=== PATIENT | male | born 1950 | race Caucasian/White ===

== ENCOUNTER 2017-06-25 09:51 | Emergency (ER) | payer SELFPAY ==
--- NOTE | 2017-06-25 11:30 | RAD ---
Indication: Left hand deformity. 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 There is no evidence of fracture. Interphalangeal joints are intact. IMPRESSION: Degenerative changes trapezium first metacarpal joint.
--- NOTE | 2017-06-25 11:54 | ED ---
Upper Extremity Pain - HPI Summary HPI Summary: Patient presents with CC of left dorsum of the hand deformity. 2 months ago he had a thorn puncture the dorsum of the hand and notes to immediate swelling. Denies erythema or warmth of fever. The deformity has been present x 2 months, but now he states the hand is tightening and he is unable to clinch his fist completely. He denies other symptoms. He has had Keflex at home from a previous skin infection and began to take that 2 days ago. He has had a total of 5 doses. Denies pain. Otherwise healthy. He states he feels the thorn is still in the hand and is requesting the area to be drained or the FB to be dislodged. - History of Current Complaint Chief Complaint: EDExtremityUpper Stated Complaint: LT HAND SWELLING Time Seen by Provider: 06/25/17 09:58 Hx Obtained From: Patient Mechanism Of Injury: Direct Blow Onset/Duration: Worse Since - 2 days ago Timing: Constant Severity Initially: Moderate Severity Currently: Moderate Pain Location: Hand Character: Aching Aggravating Factor(s): Nothing Alleviating Factor(s): Nothing Related History: Similar Episode/Dx As - Risk Factors Non-Orthopedic Risk Factor: Negative DVT Risk Factors: Negative Septic Arthritis Risk Factor: Negative Compartment Syndrome Risk Factors: Pain - Allergies/Home Medications Allergies/Adverse Reactions: Allergies Allergy/AdvReac Type Severity Reaction Status Date / Time Bee Venom Allergy Anaphylatic Verified 06/25/17 10:10 Shock Home Medications: Home Medications Aspirin [Aspirin 81 MG TAB] 81 mg PO .EVENING 06/25/17 [History Confirmed ] Cephalexin CAP* [Keflex 500 CAP*] 500 mg PO TID 06/25/17 [History Confirmed ] Cholecalciferol TAB* [Vitamin D TAB*] 1,000 mg PO DAILY 06/25/17 [History Confirmed 06/25/17] Lisinopril TAB* [Prinivil TAB*] 20 mg PO DAILY 06/25/17 [History Confirmed 06/25] Lovastatin [Mevacor] 40 mg PO DAILY 06/25/17 [History Confirmed 06/25/17] Ranitidine TAB (NF) [Zantac TAB (NF)] 150 mg PO BID 06/25/17 [History Confirmed 06/25/17] PMH/Surg Hx/FS Hx/Imm Hx Previously Healthy: Yes Infectious Disease History: No Infectious Disease History: Denies: Traveled Outside the [place] in Last 30 Days - Social History Occupation: Employed Full-time Lives: With Family Alcohol Use: None Hx Substance Use: No Substance Use Type: Reports: None Smoking Status (MU): Never Smoked Tobacco Review of Systems Constitutional: Negative Eyes: Negative Cardiovascular: Negative Respiratory: Negative Positive: no symptoms reported, see HPI Positive: Myalgia Positive: Other - small 3x3cm raised bump to the dorsum of the left hand Neurological: Negative Psychological: Normal All Other Systems Reviewed And Are Negative: Yes Physical Exam Triage Information Reviewed: Yes Vital Signs On Initial Exam: Initial Vitals Temp Pulse Resp BP Pulse Ox 98.9 F 81 20 140/105 96 06/25/17 09:55 06/25/17 09:55 06/25/17 09:55 06/25/17 09:55 06/25/17 09:55 Vital Signs Reviewed: Yes Appearance: Positive: Well-Appearing, Well-Nourished Skin: Positive: Warm, Skin Color Reflects Adequate Perfusion, Other - small 3x3cm raised bump to the dorsum of the left hand Head/Face: Positive: Normal Head/Face Inspection Eyes: Positive: EOMI, KACEY, Conjunctiva Clear Neck: Positive: Supple, No Lymphadenopathy Respiratory/Lung Sounds: Positive: Clear to Auscultation, Breath Sounds Present Cardiovascular: Positive: Normal, RRR, Pulses are Symmetrical in both Upper and Lower Extremities Musculoskeletal: Positive: Pain @ - dorsum of the hand with squeezing motion Neurological: Positive: Sensory/Motor Intact, Alert, Oriented to Person Place, Time, Speech Normal Psychiatric: Positive: Normal Diagnostics - Vital Signs Vital Signs Temp Pulse Resp BP Pulse Ox 06/25/17 10:04 98.1 F 73 16 132/90 97 06/25/17 09:55 98.9 F 81 20 140/105 96 - Laboratory Lab Statement: Any lab studies that have been ordered have been reviewed, and results considered in the medical decision making process. Course/Dx - Course Course Of Treatment: small 3x3cm raised bump to the dorsum of the left hand without erythema, warmth or fluctuance. Xray to r/o any fracture d/t severity of the injury. IMPRESSION: Echogenic foreign body is noted with complex fluid collection measuring 1.9. cm. This appears to be superficial to the tendinous structures. Daughter notes to redness yesterday which has dissipated now since starting Keflex. No other signs or symptoms. Patient was demanding the area have incision and look for FB. Wants here in ED d/t no insurance. PA uncomfortable d/t location of dorsum of the hand. Patient made aware. Dr. Kay attempted to dislodge the FB but was unsuccessful. The area packed and wrapped. Patient will be discharged home with follow up with Dr. Moore tomorrow. He would like surgery tomorrow. - Diagnoses Differential Diagnosis/HQI/PQRI: Positive: Contusion, Fracture (Open), Laceration Provider Diagnoses: Foreign body in soft tissue Discharge - Discharge Plan Condition: Stable Disposition: HOME Prescriptions: Hydrocodone-Acetaminophen [Hydrocodone/Acetaminophen 10-325 mg] 1 tab PO Q6H # 12 tab MDD 4 Patient Education Materials: Soft Tissue Foreign Body (ED) Referrals: Non Staff,Doctor [Primary Care Provider] - Cheyanne Moore MD [Medical Doctor] - Additional Instructions: Continue with Keflex four times daily for 7 days Follow up with DR. Moore tomorrow. Call tomorrow morning for in office visit appointment. Ibuprofen 600mg three times daily as needed for pain For breakthrough pain, you may use the pain medication. Images - Images Hands: 1 - 3x3cm raised area without erythema or warmth - non-fluctuant
--- NOTE | 2017-06-25 12:16 | RAD ---
Indication: Mass in the left hand Real-time sonography of the left hand was performed. There is an echogenic foreign body that is linear and is consistent with history of foreign body puncture. There is a complex fluid collection measuring up to 19 mm. This is superficial to the tendinous structures. IMPRESSION: Echogenic foreign body is noted with complex fluid collection measuring 1.9 cm. This appears to be superficial to the tendinous structures.
--- NOTE | 2017-06-25 12:59 | PN ---
I, Bridgett Espinoza, scribed for Shahnaz Kay MD on 06/25/17 at 1250 . Progress Note - Progress Note Date of Service: 06/25/17 Note: met with pt at request of KIMBERLY Garber who is overseeing's pt care. Hand I&D at 1245 Pt was adament with KIMBERLY that an area of 1cm of fluctuance be opened to see if foreign body was there. I agreed to take over care and warned pt it was unlikely that I would find the foreign body, a 2cm vertical incision was made after .25% marcaine was infiltrated into the area with good anesthesia. Area was prepped and draped and then incision was made area was probed with forceps without any success. the decision was made to keep the incision open with packing and have pt do soaks. Luckily pt's daughter who is an ARTIST SUSPECT was at the bedside and assured that she would make sure he gets to the hand surgeon. Pt was nvi and tendons were intact after procedure The documentation as recorded by the Olga hobbs SooYoung accurately reflects the service I personally performed and the decisions made by me, Shahnaz Kay MD.
[2017-06-25] MEDS ORDERED: HYDROcodone/ACETAMIN 5-325 MG* 1 TAB PO ONE (13:12)
[2017-06-25 13:36] VITALS: BP 138/79
== END 2017-06-25 13:35 | disposition home or self-care (01) ==
LOC: ED 09:51
DX: S60.552A Superficial foreign body of left hand, initial encounter (principal); M79.643 Pain in unspecified hand; X58.XXXA Exposure to other specified factors, initial encounter; Y93.89 Activity, other specified; Y92.89 Other specified places as the place of occurrence of the external cause
CPT/HCPCS: 99282